=== PATIENT | male | born 2000 | race African-American/Black ===

== ENCOUNTER 2018-02-05 14:19 | Emergency (ER) | payer OTHER ==
[2018-02-05] MEDS ORDERED: ALB18R INH ×2 (14:27→16:39)
[2018-02-05] MEDS ORDERED: ALB0.5 IH (14:27)
--- NOTE | 2018-02-05 14:28 | ER Report ---
History and Physical Time Seen By MD: 14:27 Hx. of Stated Complaint: N/V, ABDOMINAL PAIN, SOB SINCE THIS AM HPI/ROS CHIEF COMPLAINT: Chest pain HISTORY OF PRESENT ILLNESS: This is a 17-year-old male who presents to the emergency department for chest pain and epigastric pain. Patient states that he felt "off last night" and then at 1:30 this morning he woke up out of a sleep with some shortness of breath and some chest heaviness into the epigastrium. Patient states that he was also diaphoretic. He used an inhaler a couple of times with some relief, he also used an albuterol nebulizer which did help. Patient also states that he has had nausea and vomiting since then as well. Patient denies any recent illnesses. No no aches, chills, visual changes, rashes or headaches. REVIEW OF SYSTEMS: Constitutional: No fever, no chills. Eyes: No discharge. ENT: No sore throat. Cardiovascular: As above. Respiratory: Above. Gastrointestinal: As above. Genitourinary: No hematuria. Musculoskeletal: No back pain. Skin: No rashes. Neurological: No headache. Allergies: Coded Allergies: No Known Drug Allergies (Unverified , 02/05/18) Home Meds Active Scripts Ondansetron (ZOFRAN ODT) 4 Mg Tab.rapdis, 4 MG PO Q6H Y for NAUSEA/VOMITING, # 20 TAB.JV Prov:YNES PATRICK [facility] 02/05/18 Albuterol Sulfate (VENTOLIN HFA) 18 Gm Inh, 2 PUFF INH Q4-6H Y for SHORTNESS OF BREATH, #1 INH Prov:YNES PATRICK [facility]- 02/05/18 Reported Medications Albuterol Sulfate (VENTOLIN HFA) 18 Gm Inh, 2 PUFF INH Q4-6H, INH 02/05/18 Albuterol Sulfate (ALBUTEROL SULFATE) 2.5 Mg/0.5 Ml Vial.neb, 2.5 MG IH 02/05/18 Past Medical/Surgical History Patient has a past medical and surgical history of asthma. Constitutional Vital Sign - Last 24 Hours 02/05/18 02/05/18 02/05/18 02/05/18 14:25 14:30 15:00 15:30 Temp 98.4 Pulse 101 97 91 94 Resp 18 23 B/P (MAP) 145/86 153/93 (113) 153/88 (109) 158/62 (94) Pulse Ox 93 95 92 95 O2 Delivery Room Air 02/05/18 02/05/18 02/05/18 02/05/18 16:00 16:19 16:20 16:20 Pulse 94 93 Resp 14 18 B/P (MAP) 135/83 (100) 146/78 (100) Pulse Ox 95 94 O2 Delivery Room Air 02/05/18 16:27 Pulse 95 Resp 18 Physical Exam General Appearance: The patient is alert, has no immediate need for airway protection and no signs of toxicity. Eyes: Pupils equal and round no pallor or injection. ENT, Mouth: Mucous membranes are moist. Respiratory: There are no retractions, lungs are clear to auscultation. Cardiovascular: Regular rate and rhythm, no murmurs, clicks or rubs. Gastrointestinal: Abdomen is soft and non tender, no masses, bowel sounds normal. Neurological: Alert and oriented 4. Moving all extremity. Following all commands. No focal neuro deficits. Skin: Warm and dry, no rashes. Musculoskeletal: Neck is supple non tender. Extremities are nontender, nonswollen and have full range of motion. DIFFERENTIAL DIAGNOSIS: After history and physical exam differential diagnosis was considered for shortness of breath including but not limited to pulmonary infectious process, COPD, asthma, pulmonary embolus and congestive heart failure. Medical Decision Making Data Points Result Diagram: 02/05/18 1457 02/05/18 1457 Laboratory Hematology Test 02/05/18 14:57 Red Blood Count 5.12 M/uL (4.00-5.60) Mean Corpuscular Volume 85.7 fL (80.0-96.0) Mean Corpuscular Hemoglobin 29.0 pg (26.0-33.0) Mean Corpuscular Hemoglobin Concent 33.8 g/dL (32.0-36.0) Red Cell Distribution Width 13.9 % (11.5-14.5) Mean Platelet Volume 8.1 fL (7.2-11.1) Neutrophils (%) (Auto) 56.9 % (39.4-72.5) Lymphocytes (%) (Auto) 30.7 % (17.6-49.6) Monocytes (%) (Auto) 8.8 % (4.1-12.4) Eosinophils (%) (Auto) 3.2 % (0.4-6.7) Basophils (%) (Auto) 0.4 % (0.3-1.4) Nucleated RBC Relative Count (auto) 0.0 /100WBC Neutrophils # (Auto) 2.9 K/uL (2.0-7.4) Lymphocytes # (Auto) 1.6 K/uL (1.3-3.6) Monocytes # (Auto) 0.4 K/uL (0.3-1.0) Eosinophils # (Auto) 0.2 K/uL (0.0-0.5) Basophils # (Auto) 0.0 K/uL (0.0-0.1) Nucleated RBC Absolute Count (auto) 0.00 K/uL D-Dimer Quantitative (PE/DVT) 0.34 ug/ml (0-0.50) Sodium Level 141 mmol/L (137-145) Potassium Level 3.9 mmol/L (3.5-5.0) Chloride Level 103 mmol/L (98-107) Carbon Dioxide Level 25 mmol/L (22-30) Blood Urea Nitrogen 11 mg/dl (9-21) Creatinine 1.20 mg/dl (0.66-1.25) Glomerular Filtration Rate Calc > 60.0 Random Glucose 101 mg/dl (75-110) Calcium Level 9.9 mg/dl (8.4-10.2) Total Bilirubin 0.6 mg/dl (0.2-1.3) Aspartate Amino Transf (AST/SGOT) 29 U/L (0-35) Alanine Aminotransferase (ALT/SGPT) 42 U/L (0-56) Alkaline Phosphatase 64 U/L (0-126) Troponin I < 0.012 ng/ml Total Protein 7.6 gm/dl (6.3-8.2) Albumin 4.2 g/dl (3.5-5.0) Chemistry Test 02/05/18 14:57 White Blood Count 5.1 k/uL (4.5-11.0) Red Blood Count 5.12 M/uL (4.00-5.60) Hemoglobin 14.9 g/dL (14.0-18.0) Hematocrit 43.9 % (42.0-52.0) Mean Corpuscular Volume 85.7 fL (80.0-96.0) Mean Corpuscular Hemoglobin 29.0 pg (26.0-33.0) Mean Corpuscular Hemoglobin Concent 33.8 g/dL (32.0-36.0) Red Cell Distribution Width 13.9 % (11.5-14.5) Platelet Count 258 K/uL (150-450) Mean Platelet Volume 8.1 fL (7.2-11.1) Neutrophils (%) (Auto) 56.9 % (39.4-72.5) Lymphocytes (%) (Auto) 30.7 % (17.6-49.6) Monocytes (%) (Auto) 8.8 % (4.1-12.4) Eosinophils (%) (Auto) 3.2 % (0.4-6.7) Basophils (%) (Auto) 0.4 % (0.3-1.4) Nucleated RBC Relative Count (auto) 0.0 /100WBC Neutrophils # (Auto) 2.9 K/uL (2.0-7.4) Lymphocytes # (Auto) 1.6 K/uL (1.3-3.6) Monocytes # (Auto) 0.4 K/uL (0.3-1.0) Eosinophils # (Auto) 0.2 K/uL (0.0-0.5) Basophils # (Auto) 0.0 K/uL (0.0-0.1) Nucleated RBC Absolute Count (auto) 0.00 K/uL D-Dimer Quantitative (PE/DVT) 0.34 ug/ml (0-0.50) Glomerular Filtration Rate Calc > 60.0 Calcium Level 9.9 mg/dl (8.4-10.2) Total Bilirubin 0.6 mg/dl (0.2-1.3) Aspartate Amino Transf (AST/SGOT) 29 U/L (0-35) Alanine Aminotransferase (ALT/SGPT) 42 U/L (0-56) Alkaline Phosphatase 64 U/L (0-126) Troponin I < 0.012 ng/ml Total Protein 7.6 gm/dl (6.3-8.2) Albumin 4.2 g/dl (3.5-5.0) Coagulation Test 02/05/18 14:57 D-Dimer Quantitative (PE/DVT) 0.34 ug/ml EKG/Imaging EKG Interpretation 12 lead EKG: Time of EKG 1444. Rhythm: Normal sinus rhythm, ventricular rate 82 bpm. [place]: normal QRS: Early repolarization. ST segments: Early repolarization, no ST depression or elevation. Imaging Location: [facility] Patient: Alicia Phelps : 2000 Visit/Account:[id number] Date of Sevice: 02/05/2018 Exam type: CHEST PA AND LAT History: Chest pain and asthma Comparison: None. Findings: There is mild elevation right hemidiaphragm. The lungs are free of acute effusions, infiltrates or edema. There is no evidence of a pneumothorax or pneumomediastinum the cardiac silhouette is normal in size. IMPRESSION: 1. Mild elevation of the right hemidiaphragm which could be chronic. Otherwise no acute cardiopulmonary process seen Report Dictated By: Shannon Davis MD at 02/05/2018 3:47 PM Report E-Signed By: Shannon Davis MD at 02/05/2018 3:48 PM WSN:[place] ED Course/Re-evaluation ED Course The patient was admitted to a room. A history and physical were obtained. Differential diagnoses were considered. An IV was started. A CBC, CMP, d-dimer and troponin were obtained. Lab studies unremarkable. D-dimer negative troponin. Two-view chest x-ray was negative for any acute cardiopulmonary process. I did review these results with the patient, he did state that he still had some slight shortness of breath, which time they gave him a DuoNeb which seemed to help his breathing. I did reassure the patient that pulmonary and cardiac involvement was very unlikely as his tests were negative, patient was relieved. Patient also states that he had a hard time chewing the aspirin and normally has a hard time taking pills, patient became anxious during the time of discharge and had one episode of emesis. He was given 14 mg ODT Zofran, patient felt better after this and decided to go home. Patient did state that he oftentimes has this GI upset with pills I did recommend that he follows up with one of the general surgeons and consider an endoscopy. The patient's sap trainer from [employer] was at the bedside when I discussed this. The patient had no other questions or concerns at this time and was discharged home. Decision to Disposition Date: Feb 05, 2018 Decision to Disposition Time: 16:55 Depart Departure Latest Vital Signs Vital Signs Date Time Temp Pulse Resp B/P (MAP) Pulse Ox O2 Delivery O2 Flow Rate FiO2 02/05/18 16:27 95 18 02/05/18 16:20 94 Room Air 02/05/18 16:19 146/78 (100) 02/05/18 14:25 98.4 Impression: Primary Impression: Shortness of breath Condition: Improved Disposition: HOME OR SELF-CARE New Scripts Ondansetron (ZOFRAN ODT) 4 Mg Tab.rapdis 4 MG PO Q6H Y for NAUSEA/VOMITING, #20 TAB.JV Prov: YNES PATRICK 02/05/18 Albuterol Sulfate (VENTOLIN HFA) 18 Gm Inh 2 PUFF INH Q4-6H Y for SHORTNESS OF BREATH, #1 INH Prov: YNES PATRICK 02/05/18 Patient Instructions: Asthma (ED) Additional Instructions: Drink plenty of fluids. Get plenty of rest. Use the albuterol inhaler as indicated. Return to the emergency department for increased shortness of breath or chest pain. Follow-up with your primary care provider for any other concerns. YNES PATRICK Feb 05, 2018 14:28
[2018-02-05] MEDS ORDERED: ASPIRIN 81 MG CHEW PO ONE (14:40)
[2018-02-05] MEDS ORDERED: ONDANSETRON 4 MG/2 ML VIAL IVP ONE (14:40)
--- NOTE | 2018-02-05 14:49 | EKG ---
FACILITY: [facility] PATIENT NAME: MELONIE ARVIZU : [id number] MR: [id number] V: [id number] EXAM DATE: ORDERING PHYSICIAN: YNES PATRICK TECHNOLOGIST: ALEX Hill Reason : CP Blood Pressure : / mmHG Vent. Rate : 082 BPM Atrial Rate : 082 BPM P-R Int : 170 ms QRS Dur : 084 ms QT Int : 346 ms P-R-T Axes : 034 029 -08 degrees QTc Int : 404 ms Normal sinus rhythm with sinus arrhythmia ST elevation, consider early repolarization, pericarditis, or injury Nonspecific ST and T wave abnormality Abnormal ECG Confirmed by CRISTHIAN ODELL ([id number]) on 02/05/2018 4:51:42 PM Referred By: Confirmed By:CRISTHIAN ODELL
[2018-02-05 15:06] LABS: PLATELET COUNT, AUTOMATED 258 K/uL (150-450)
--- NOTE | 2018-02-05 15:52 | RADIOLOGY IMAGING REPORT ---
FACILITY: [facility] PATIENT NAME: Alicia Phelps : 2000 MR: [id number] V: [id number] EXAM DATE: ORDERING PHYSICIAN: YNES PATRICK TECHNOLOGIST: [facility] Patient: Alicia Phelps : 2000 Visit/Account:[id number] Date of Sevice: 02/05/2018 Exam type: CHEST PA AND LAT History: Chest pain and asthma Comparison: None. Findings: There is mild elevation right hemidiaphragm. The lungs are free of acute effusions, infiltrates or e balwinder. There is no evidence of a pneumothorax or pneumomediastinum the cardiac silhouette is normal i n size. IMPRESSION: 1. Mild elevation of the right hemidiaphragm which could be chronic. Otherwise no acute cardiopulmonary process seen Report Dictated By: Shannon Davis MD at 02/05/2018 3:47 PM Report E-Signed By: Shannon Davis MD at 02/05/2018 3:48 PM WSN:[email or web address]
[2018-02-05 16:19] VITALS: BP 146/78
[2018-02-05] MEDS ORDERED: ALBUTEROL/IPRATROPIUM 3 ML NEB NEB ONE (16:20)
[2018-02-05] MEDS ORDERED: ONDANSETRON 4 MG ODT TABDP SL ONE (17:15)
[2018-02-05] MEDS ORDERED: ONDA4TAB PO (17:19)
== END 2018-02-05 17:08 | disposition home or self-care (01) ==
LOC: ER 14:20
DX: R06.02 Shortness of breath (principal)
CPT/HCPCS: 71046; 84484; 85025; 85379; 93005; 94640; 96374; 99284; J2405; J7620; S0119; 82040; 82247; 82310; 82374; 82435; 82565; 82947; 84075; 84132; 84155; 84295; 84450; 84460; 84520

== ENCOUNTER 2018-10-27 20:31 | Emergency (ER) | payer OTHER ==
[~2018-10-27 20:31] MED LIST: ALB0.5 IH; ALB18R INH; ONDA4TAB PO
--- NOTE | 2018-10-27 20:35 | ER Report ---
History and Physical Time Seen By MD: 20:35 HPI/ROS CHIEF COMPLAINT: Fever HISTORY OF PRESENT ILLNESS: 17-year-old male presents ambulatory to the ER complaining of illness for 3 days. He's been having some intermittent high fevers. He's had a dry cough. He's had some nasal congestion and plugged ears bilaterally. Patient denies exposure to ill contacts. Patient notes no difficulty breathing. He's had some mild nausea but no vomiting. He notes s everal episodes of diarrhea. Patient took ibuprofen this morning. He took NyQuil this afternoon. He's been sleeping most of the day. REVIEW OF SYSTEMS: Respiratory: No cough, no dyspnea. Cardiovascular: No chest pain, no palpitations. Gastrointestinal: No vomiting, no abdominal pain. Musculoskeletal: No back pain. Allergies: Coded Allergies: No Known Drug Allergies (Unverified , 10/27/18) Home Meds Active Scripts Ondansetron Hcl (ZOFRAN) 4 Mg Tablet, 4 MG PO Q6HR PRN for NAUSEA/VOMITING, #15 Prov:ARIADNE MALDONADO DO 10/27/18 Albuterol Sulfate (VENTOLIN HFA) 18 Gm Inh, 2 PUFF INH Q4-6H PRN for SHORTNESS OF BREATH, #1 INH Prov:YNES PATRICK [facility] 02/05/18 Reported Medications Albuterol Sulfate (VENTOLIN HFA) 18 Gm Inh, 2 PUFF INH Q4-6H, INH 02/05/18 Albuterol Sulfate (ALBUTEROL SULFATE) 2.5 Mg/0.5 Ml Vial.neb, 2.5 MG IH 02/05/18 Discontinued Scripts Ondansetron (ZOFRAN ODT) 4 Mg Tab.rapdis, 4 MG PO Q6H PRN for NAUSEA/VOMITING, #20 TAB.JV Prov:YNES PATRICK [facility] 02/05/18 Reviewed Nurses Notes: Yes Old Medical Records Reviewed: Yes Constitutional Vital Sign - Last 24 Hours 10/27/18 10/27/18 10/27/18 10/27/18 20:31 20:37 20:38 21:00 Temp 100.8 Pulse 93 102 Resp 16 B/P (MAP) 156/82 156/82 (106) 147/71 (96) Pulse Ox 92 91 O2 Delivery Room Air Room Air 10/27/18 10/27/18 10/27/18 21:01 21:30 21:31 Pulse 94 83 B/P (MAP) 144/90 (108) Pulse Ox 93 90 O2 Delivery Room Air Room Air Physical Exam Vital signs stable, low-grade fever 100.8, pulse ox normal General Appearance: patient is alert, has no immediate need for airway protection and no current signs of toxicity. Mild distress, slightly diaphoretic HEENT: Pupils equal and round no injection. TMs normal, oropharynx with mild redness, no exudate Respiratory: Chest is non tender, lungs are clear to auscultation. No wheezing or rails Cardiac: regular rate and rhythm Gastrointestinal: Abdomen is soft and non tender, no masses, bowel sounds normal. Musculoskeletal: Neck: Neck is supple and non tender. No lymphadenopathy, no meningismus Extremities have full range of motion and are non tender. Skin: No rashes or lesions. DIFFERENTIAL DIAGNOSIS: After history and physical exam differential diagnosis was considered for adult fever including but not limited to viral syndromes including influenza, urinary tract infection, pneumonia and sepsis. Medical Decision Making Data Points Laboratory Hematology Test 10/27/18 20:47 Influenza Virus Type A (PCR) Negative (NEGATIVE) Influenza Virus Type B (PCR) Negative (NEGATIVE) Group A Streptococcus (PCR) Negative (NEGATIVE) Chemistry Test 10/27/18 20:47 Influenza Virus Type A (PCR) Negative (NEGATIVE) Influenza Virus Type B (PCR) Negative (NEGATIVE) Group A Streptococcus (PCR) Negative (NEGATIVE) ED Course/Re-evaluation ED Course Patient was admitted to an examination room. H&P was done. The differential diagnoses was considered. On clinical examination. Patient has a fever. On clinical examination. There is no evidence of bacterial infection. Rapid infl uenza and rapid strep are performed which are both negative. Patient's reassured that he likely has viral syndrome. He's advised conservative management. He is given medication to control his nausea and Zofran. Patient advised to follow-up with primary care [facility] if unimproved in 3-5 days. Decision to Disposition Date: Oct 27, 2018 Decision to Disposition Time: 20:49 Depart Departure Latest Vital Signs Vital Signs Date Time Temp Pulse Resp B/P (MAP) Pulse Ox O2 Delivery O2 Flow Rate FiO2 10/27/18 21:31 83 90 Room Air 10/27/18 21:30 144/90 (108) 10/27/18 20:37 100.8 16 Impression: Primary Impression: Viral syndrome Additional Impression: Fever Condition: Improved Disposition: HOME OR SELF-CARE New Scripts Ondansetron Hcl (ZOFRAN) 4 Mg Tablet 4 MG PO Q6HR PRN for NAUSEA/VOMITING, #15 Prov: ARIADNE MALDONADO DO 10/27/18 Patient Instructions: Viral Syndrome (ED) Additional Instructions: Rapid strep and rapid influenza were negative Treat your symptoms to make herself feel better Take ibuprofen 200 mg 3-4 tablets 3 times a day with food You steak well and NyQuil for other symptomatic relief Follow-up with primary care [facility] if unimproved in 3-5 days Problem Qualifiers Additional Impression: Fever Fever type: unspecified Qualified Codes: R50.9 - Fever, unspecified ARIADNE MALDONADO DO Oct 27, 2018 20:35
[2018-10-27 21:30] VITALS: BP 144/90
[2018-10-27] MEDS ORDERED: ONDA4TAB97 PO (21:51)
== END 2018-10-27 21:52 | disposition home or self-care (01) ==
LOC: ER 20:59
DX: B34.9 Viral infection, unspecified (principal); R50.9 Fever, unspecified
CPT/HCPCS: 87502; 87653; 99282